=== PATIENT | male | born 1945 | race Native Hawaiian/Other Pacific Islander ===

== ENCOUNTER 2019-02-20 18:45 | Emergency (ER) | payer BC ==
[~2019-02-20] VITALS: Ht 180.3 cm; Wt 85.7 kg
[2019-02-20 19:56] LABS: PLATELET COUNT 196 K/uL (142-355)
[2019-02-20 20:04] LABS: POTASSIUM 3.8 mmol/L (3.6-5.2)
[2019-02-20 20:30] VITALS: BP 119/82; TEMP 97.9
[2019-02-21] MEDS ORDERED: CLOTRIM/BET1 EX (06:35)
[2019-02-21] MEDS ORDERED: OMEPRAZOLE40 MG PO (06:36)
[2019-02-21] MEDS ORDERED: METO25TA2 PO (06:38)
[2019-02-21] MEDS ORDERED: TAMS0.4C PO (06:40)
[2019-02-21] MEDS ORDERED: BIOTEN1 MT (06:41)
[2019-02-21] MEDS ORDERED: LEXAPRO10 MG PO (06:45)
[2019-02-21] MEDS ORDERED: GABA300C2 PO (06:47)
[2019-02-21] MEDS ORDERED: DESENEX EX (06:48)
[2019-02-21] MEDS ORDERED: METF100038 PO (06:49)
[2019-02-21] MEDS ORDERED: LEVE500T5 PO (06:53)
[2019-02-21] MEDS ORDERED: PSYL0.52C PO (06:54)
[2019-02-21] MEDS ORDERED: PRAVACHOL20 MG PO (06:55)
[2019-02-21] MEDS ORDERED: CALCI-CHEW PO (06:56)
[2019-02-21] MEDS ORDERED: INSUINJP SC (06:57)
[2019-02-21] MEDS ORDERED: NITROGLYCERIN0.4 MG SL (07:02)
[2019-02-21] MEDS ORDERED: TYLENOL325 MG PO (07:03)
[2019-02-21] MEDS ORDERED: CETIRIZINE10 MG PO (07:04)
[2019-02-21] MEDS ORDERED: INSU100P SC (07:35)
[2019-02-26] MEDS ORDERED: CARB25TA29 PO (09:41)
[2019-03-04] MEDS ORDERED: CYAN10009 IM (15:29)
[2019-03-04] MEDS ORDERED: ESCI10TA PO (15:29)
[2019-03-04] MEDS ORDERED: FOLI1TAB26 PO (15:29)
== END 2019-02-20 20:30 | disposition other institution (70) ==
LOC: ED 19:05
PROVIDERS: Emergency Medicine
DX: T14.91XA Suicide attempt, initial encounter (principal); Z04.6 Encounter for general psychiatric examination, requested by authority; R00.0 Tachycardia, unspecified; X83.8XXA Intentional self-harm by other specified means, initial encounter; Y92.129 Unspecified place in nursing home as the place of occurrence of the external cause
CPT/HCPCS: 36415; 80053; 85027; 93005; 99285